=== PATIENT | female | born 1940 | race African-American/Black ===

== ENCOUNTER 2017-06-14 18:44 | Emergency (ER) | payer MEDICARE, OTHER, MEDICAID ==
[2017-06-14 18:53] VITALS: BP 156/101
[2017-06-14] MEDS ORDERED: ACETAMINOPHEN 325 MG TABLET PO ONE (20:48)
[2017-06-14] MEDS ORDERED: MORPHINE SULFATE IR 15 MG TABLET PO ONE (20:48)
[2017-06-14] MEDS ORDERED: IBUPROFEN 400 MG TABLET PO ONE (20:48)
--- NOTE | 2017-06-14 20:52 | ER Document Report ---
ED General - General Chief Complaint: Facial Swelling Stated Complaint: MOUTH SWELLING,TOOTH PAIN Time Seen by Provider: 06/14/17 19:21 Notes: Patient is a 76-year-old female who presents with 2 days of severe dental pain with associated headache. Patient reports that she cracked her one remaining lateral incisor several days ago while eating chicken and since that time is had severe pain. She describes it as a constant, severe, throbbing pain to her jaw that sometimes radiates up into her head. She denies a history of similar symptoms in the past. She states that she went to a dentist but her insurance would not cover the appropriate procedure so she needs to wait until the beginning of the year until she can have a procedure for definitive management. She denies any fever, altered mental status, neck pain, weakness, numbness, or significant facial swelling. No difficulty breathing or swallowing. TRAVEL OUTSIDE OF THE [place] IN LAST 30 DAYS: No - Related Data Allergies/Adverse Reactions: No Known Allergies Allergy (Verified 06/14/17 18:46) Past Medical History - General Information source: Patient - Social History Smoking Status: Never Smoker Frequency of alcohol use: None Drug Abuse: None Lives with: Family Family History: DM - Past Medical History Cardiac Medical History: Reports: Hx Hypertension - ON MEDS Denies: Hx Heart Attack Pulmonary Medical History: Denies: Hx Asthma Neurological Medical History: Denies: Hx Cerebrovascular Accident, Hx Seizures GI Medical History: Denies: Hx Hepatitis, Hx Hiatal Hernia, Hx Ulcer Musculoskeltal Medical History: Reports Hx Arthritis - in back Infectious Medical History: Denies: Hx Hepatitis Past Surgical History: Reports: Hx Orthopedic Surgery - rt foot bunion resection. Denies: Hx Hysterectomy, Hx Mastectomy, Hx Open Heart Surgery, Hx Pacemaker - Immunizations Hx Diphtheria, Pertussis, Tetanus Vaccination: Yes - 2008 Review of Systems - Review of Systems Notes: Constitutional: Negative for fever. HENT: Negative for sore throat. Eyes: Negative for visual changes. Cardiovascular: Negative for chest pain. Respiratory: Negative for shortness of breath. Gastrointestinal: Negative for abdominal pain, vomiting or diarrhea. Genitourinary: Negative for dysuria. Musculoskeletal: Negative for back pain. Skin: Negative for rash. Neurological: Positive for headaches 10 point ROS negative except as marked above and in HPI. Physical Exam - Vital signs Vitals: Temp Pulse Resp BP Pulse Ox 99.7 F 103 H 20 156/101 H 99 06/14/17 18:49 06/14/17 18:49 06/14/17 18:49 06/14/17 18:49 06/14/17 18:49 Interpretation: Hypertensive Notes: PHYSICAL EXAMINATION: GENERAL: Well-appearing, well-nourished and in no acute distress. HEAD: Atraumatic, normocephalic. EYES: Pupils equal round and reactive to light, extraocular movements intact, sclera anicteric, conjunctiva are normal. ENT: The one remaining tooth of the upper teeth tooth #12 is fractured down to the level of the gum without any surrounding erythema or evidence of an abscess NECK: Normal range of motion, supple without lymphadenopathy LUNGS: Breath sounds clear to auscultation bilaterally and equal. No wheezes rales or rhonchi. HEART: Regular rate and rhythm without murmurs ABDOMEN: Soft, nontender, normoactive bowel sounds. No guarding, no rebound. No masses appreciated. EXTREMITIES: Normal range of motion, no pitting or edema. No cyanosis. NEUROLOGICAL: Face symmetric. Tongue protrudes midline. Extraocular motions intact. Pupils are 2 mm and equally reactive. Normal speech, normal gait. 5 out of 5 strength in both the distal and proximal upper and lower extremities bilaterally. Sensation is grossly intact throughout. Finger to nose testing normal. Pronator drift normal. PSYCH: Normal mood, normal affect. SKIN: Warm, Dry, normal turgor, no rashes or lesions noted. Course - Re-evaluation Re-evalutation: 06/14/17 20:47 Presentation is most consistent with likely a fractured and subsequently infected tooth. Airway is patent. Vitals within normal limits. Patient is able swallow without any difficulty. There is no significant facial swelling. No evidence of [place] angina, apical abscess, or airway obstruction. Patient will be started on antibiotics. I've instructed to follow-up with dentistry as earliest ability for definitive management. At this time will discharge with return precautions and follow-up recommendations. Verbal discharge instructions given a the bedside and opportunity for questions given. Medication warnings reviewed. Patient is in agreement with this plan and has verbalized understanding of return precautions and the need for primary care follow-up in the next 24-72 hours. - Vital Signs Vital signs: Temp Pulse Resp BP Pulse Ox 99.7 F 103 H 20 156/101 H 99 06/14/17 18:49 06/14/17 18:49 06/14/17 18:49 06/14/17 18:49 06/14/17 18:49 Discharge - Discharge Clinical Impression: Pain, dental Tooth fracture Qualifiers: Encounter type: initial encounter Fracture type: closed Qualified Code(s): S02.5XXA - Fracture of tooth (traumatic), initial encounter for closed fracture Condition: Good Disposition: HOME, SELF-CARE Additional Instructions: You have been seen for dental pain. It is very important that you follow-up with a dentist for definitive care. Please return if you develop fever greater than 101, swelling in your face, vomiting, difficulty breathing or swallowing, or any other symptoms that are concerning to you. For your pain: Take ibuprofen 600 mg and acetaminophen 1000 mg every 6 hours together as needed for pain. If this does not control your pain you may take 15 mg of oral morphine every 4 hours as needed. Please be very careful about using the oral morphine and only use this for severe pain. Prescriptions: Morphine Sulfate [Morphine Ir 15 mg Tablet] 15 mg PO Q4HP PRN #12 tablet PRN Reason: Penicillin V Potassium [Penicillin Vk 500 mg Tablet] 500 mg PO BID #20 tablet
== END 2017-06-14 21:30 | disposition home or self-care (01) ==
LOC: ER 18:44
DX: S02.5XXA Fracture of tooth (traumatic), initial encounter for closed fracture (principal); X58.XXXA Exposure to other specified factors, initial encounter; K08.89 Other specified disorders of teeth and supporting structures; I10 Essential (primary) hypertension; R51 Headache
CPT/HCPCS: 99283; A9270 ×3; J3490

== ENCOUNTER 2019-08-17 14:04 | Emergency (ER) | payer MEDICARE, MEDICAID ==
[2019-08-17] MEDS ORDERED: IPRATROPIUM/ALBUTEROL 0.5-2.5 MG/3 ML AMPUL NEB ONE (14:27)
[2019-08-17] MEDS ORDERED: METHYLPREDNISOLONE INJ 125 MG/2 ML SDV IV ONE (14:27)
--- NOTE | 2019-08-17 14:29 | ER Document Report ---
ED Medical Screen (RME) - General Chief Complaint: Breathing Difficulty Stated Complaint: COUGH/CHEST PAIN Time Seen by Provider: 08/17/19 14:24 Mode of Arrival: Wheelchair Information source: Patient Notes: 79-year-old female patient presents emergency department chief complaint of cough over the last 3 days. Patient sounds very congested, she has diffuse expiratory wheezes noted. She does report a history of asthma many years ago, states she does not take any medication for this now. Denies any fevers. I have greeted and performed a rapid initial assessment of this patient. A comp rehensive ED assessment and evaluation of the patient, analysis of test results and completion of the medical decision making process will be conducted by additional ED providers. I have specifically instructed the patient or family members with the patient to immediately return to any nursing staff should anything change in the patient's condition or with their chief complaint. TRAVEL OUTSIDE OF THE [place] IN LAST 30 DAYS: No - Related Data Allergies/Adverse Reactions: No Known Allergies Allergy (Verified 08/17/19 14:23) Past Medical History - Social History Chew tobacco use (# tins/day): No Frequency of alcohol use: None Drug Abuse: None - Past Medical History Cardiac Medical History: Reports: Hx Hypertension - ON MEDS Denies: Hx Heart Attack Pulmonary Medical History: Denies: Hx Asthma Neurological Medical History: Denies: Hx Cerebrovascular Accident, Hx Seizures Renal/ Medical History: Denies: Hx Peritoneal Dialysis GI Medical History: Denies: Hx Hepatitis, Hx Hiatal Hernia, Hx Ulcer Musculoskeltal Medical History: Reports Hx Arthritis - in back Infectious Medical History: Denies: Hx Hepatitis Past Surgical History: Reports: Hx Orthopedic Surgery - rt foot bunion resecti on. Denies: Hx Hysterectomy, Hx Mastectomy, Hx Open Heart Surgery, Hx Pacemaker - Immunizations Hx Diphtheria, Pertussis, Tetanus Vaccination: Yes - 2008 Physical Exam - Vital signs Vitals: Temp Pulse Resp BP Pulse Ox 98.8 F 94 22 H 148/92 H 99 08/17/19 14:20 08/17/19 14:20 08/17/19 14:20 08/17/19 14:20 08/17/19 14:20 Course - Vital Signs Vital signs: Temp Pulse Resp BP Pulse Ox 98.8 F 94 22 H 148/92 H 99 08/17/19 14:20 08/17/19 14:20 08/17/19 14:20 08/17/19 14:20 08/17/19 14:20
--- NOTE | 2019-08-17 15:12 | RADIOLOGY REPORT (SQ) ---
EXAM DESCRIPTION: CHEST 2 VIEWS COMPLETED DATE/TIME: 08/17/2019 2:51 pm REASON FOR STUDY: cough COMPARISON: None. EXAM PARAMETERS: NUMBER OF VIEWS: two views TECHNIQUE: Digital Frontal and Lateral radiographic views of the chest acquired. RADIATION DOSE: NA LIMITATIONS: none FINDINGS: LUNGS AND PLEURA: No focal opacities. Perihilar atelectasis. No effusions. MEDIASTINUM AND HILAR STRUCTURES: No masses or contour abnormalities. HEART AND VASCULAR STRUCTURES: Heart normal size. No evidence for failure. BONES: No acute findings. HARDWARE: None in the chest. OTHER: No other significant finding. IMPRESSION: Perihilar atelectasis. TECHNICAL DOCUMENTATION: JOB ID: [id number] 2011 [employer]- All Rights Reserved Reading location - IP/workstation name: [email or web address]
[2019-08-17 15:27] LABS: ABSOLUTE BASOPHILS # (AUTO) 0.1 10^3/uL (0.0-0.2); ABSOLUTE EOSINOPHILS # (AUTO) 0.6 10^3/uL (0.0-0.6); ABSOLUTE LYMPHOCYTES (AUTO) 1.7 10^3/uL (0.5-4.7); ABSOLUTE MONOCYTES (AUTO) 0.8 10^3/uL (0.1-1.4); ABSOLUTE NEUT (AUTO) 2.5 10^3/uL (1.7-8.2); EOSINOPHILS % (AUTO) 10.4 % (0-6); HEMOGLOBIN 13.9 g/dL (12.0-15.5); LYMPHOCYTES % (AUTO) 30.2 % (13-45); MEAN CORPUSCULAR HEMOGLOBIN 30.9 pg (27.0-33.4); MEAN CORPUSCULAR HGB CONC 34.8 g/dL (32.0-36.0); MEAN CORPUSCULAR VOLUME 89 fl (80-97); MONOCYTES % (AUTO) 14.5 % (3-13); PLATELET COUNT 174 10^3/uL (150-450); RED CELL DISTRIBUTION WIDTH 14.5 % (11.5-14.0); SEGMENTED NEUTROPHILS % (AUTO) 43.9 % (42-78); TOTAL CELLS COUNTED % (AUTO) 100 %; WHITE BLOOD COUNT 5.7 10^3/uL (4.0-10.5)
[2019-08-17 16:31] LABS: ALKALINE PHOSPHATASE 109 U/L (38-126); ANION GAP 9 (5-19); ASPARTATE AMINO TRANSFERASE 48 U/L (14-36); BILIRUBIN,DIRECT 0.3 mg/dL (0.0-0.4); BILIRUBIN,TOTAL 0.7 mg/dL (0.2-1.3); BLOOD UREA NITROGEN 16 mg/dL (7-20); CALCIUM 9.8 mg/dL (8.4-10.2); CARBON DIOXIDE 21 mmol/L (22-30); CHLORIDE 110 mmol/L (98-107); GLUCOSE 84 mg/dL (75-110); POTASSIUM 4.8 mmol/L (3.6-5.0); TOTAL PROTEIN 8.5 g/dL (6.3-8.2)
[2019-08-17 16:40] LABS: NT PRO BNP 73 pg/mL (<450)
[2019-08-17 16:45] LABS: TROPONIN I < 0.012 ng/mL
[2019-08-17] MEDS ORDERED: GUAIFENESIN/CODEINE PHOS 100-10 MG/ 5 ML UDC PO ONE (17:09)
--- NOTE | 2019-08-17 17:09 | ER Document Report ---
ED Respiratory Problem - General Chief Complaint: Breathing Difficulty Stated Complaint: COUGH/CHEST PAIN Time Seen by Provider: 08/17/19 14:24 Mode of Arrival: Wheelchair Notes: 79-year-old woman presents to the emergency department with a 1 day history of increased cough and upper respiratory tract symptoms. She denies history of fever or chest pain. She is received a nebulizer treatment and chest x-ray was performed. Chest x-ray is negative and the patient O2 sat is 100%. She states that she is needing something to help with the coughing. TRAVEL OUTSIDE OF THE [place] IN LAST 30 DAYS: No - Related Data Allergies/Adverse Reactions: No Known Allergies Allergy (Verified 08/17/19 14:23) Past Medical History - General Information source: Patient - Social History Smoking Status: Never Smoker Chew tobacco use (# tins/day): No Frequency of alcohol use: None Drug Abuse: None Family History: DM Patient has suicidal ideation: No Patient has homicidal ideation: No - Past Medical History Cardiac Medical History: Reports: Hx Hypertension - ON MEDS Denies: Hx Heart Attack Pulmonary Medical History: Denies: Hx Asthma Neurological Medical History: Denies: Hx Cerebrovascular Accident, Hx Seizures Renal/ Medical History: Denies: Hx Peritoneal Dialysis GI Medical History: Denies: Hx Hepatitis, Hx Hiatal Hernia, Hx Ulcer Musculoskeletal Medical History: Reports Hx Arthritis - in back Infectious Medical History: Denies: Hx Hepatitis Past Surgical History: Reports: Hx Orthopedic Surgery - rt foot bunion resection. Denies: Hx Hysterectomy, Hx Mastectomy, Hx Open Heart Surgery, Hx Pacemaker - Immunizations Hx Diphtheria, Pertussis, Tetanus Vaccination: Yes - 2008 Review of Systems - Review of Systems Notes: Constitutional: Negative for fever. HENT: Negative for sore throat. Eyes: Negative for visual changes. Cardiovascular: Negative for chest pain. Respiratory: + Cough, + shortness of breath. Gastrointestinal: Negative for abdominal pain, vomiting or diarrhea. Genitourinary: Negative for dysuria. Musculoskeletal: Negative for back pain. Skin: Negative for rash. Neurological: Negative for headaches, weakness or numbness. 10 point ROS negative except as marked above and in HPI. Physical Exam - Vital signs Vitals: Temp Pulse Resp BP Pulse Ox 98.8 F 94 22 H 148/92 H 99 08/17/19 14:20 08/17/19 14:20 08/17/19 14:20 08/17/19 14:20 08/17/19 14:20 - Notes Notes: PHYSICAL EXAMINATION: Physical Exam: General: Well-nourished well-developed 79-year-old woman in no acute distress HEENT: NC/AT, pupils equal round and reactive to light, MM moist,nares clear, oropharynx clear, airway patent Neck: supple, no adenopathy, no masses. Good range of motion Lungs: clear, no wheezing, + upper airway rhonchi CVS: Regular rate and rhythm no murmur gallop or rub Abdomen: Soft, active, nontender, no masses, no hepatosplenomegaly Ext: No edema, clubbing or cyanosis. Neuro: Alert and responsive, moving all 4 extremities on command, cranial nerves intact, no focal findings Skin: Intact no open lesions, no rash PSYCH: Normal mood, normal affect. Course - Re-evaluation Re-evalutation: 08/17/19 19:11 Patient with cough and upper respiratory symptoms, chest x-ray is negative for pneumonia, diagnoses of the upper respiratory tract infection with likely possible bronchitis. Patient is given prescriptions for antibiotics and steroids. Said to follow-up with her primary care doctor and to return to the emergency department if needed. Patient seems agreeable with that plan and is being discharged. - Vital Signs Vital signs: Temp Pulse Resp BP Pulse Ox 98.8 F 94 21 H 167/103 H 99 08/17/19 14:20 08/17/19 14:20 08/17/19 18:01 08/17/19 18:01 08/17/19 18:01 - Laboratory Result Diagrams: 08/17/19 15:00 08/17/19 16:00 Laboratory results interpreted by me: 08/17/19 08/17/19 15:00 16:00 RDW 14.5 H [place] % (Auto) 14.5 H Eos % (Auto) 10.4 H Chloride 110 H Carbon Dioxide 21 L Est GFR ( Amer) 56 L Est GFR (MDRD) Non-Af 47 L AST 48 H ALT 36 H Total Protein 8.5 H - Diagnostic Test Radiology reviewed: Image reviewed, Reports reviewed - Chest x-ray: Perihilar atelectasis, no infiltrate seen. - EKG Interpretation by Me EKG shows normal: Sinus rhythm - Rate of 97, nonspecific T wave abnormalities, interpretation: Abnormal EKG Discharge - Discharge Clinical Impression: Cough, Bronchospasm Acute bronchitis Qualifiers: Bronchitis organism: unspecified organism Qualified Code(s): J20.9 - Acute bronchitis, unspecified Condition: Good Disposition: HOME, SELF-CARE Instructions: Bronchitis ([facility]), Bronchospasm ([facility]) Additional Instructions: You were diagnosed with acute bronchitis and bronchospasms in the emergency department, please use medications as prescribed, albuterol inhaler, Zithromax, prednisone, Tessalon Perles. You might use [id number] cough medication Robitussin-DM which was given in the emergency department as well as a prescription cough medicine and Tessalon Perles. Please follow-up with your doctor on Monday, you may return to the emergency department if your symptoms are worsening. Prescriptions: Benzonatate [Tessalon Perles 100 mg Capsule] 100 mg PO Q8HP PRN #40 capsule PRN Reason: Prednisone [Deltasone 20 mg Tablet] 1 tab PO BID 5 Days #10 tablet Albuterol Sulfate [Proair HFA Inhalation Aerosol 8.5 gm MDI] 2 puff IH Q4H PRN #1 mdi PRN Reason: Azithromycin [Zithromax 250 mg Tablet] 250 mg PO ASDIR PRN #6 tablet PRN Reason:
[2019-08-17 19:27] VITALS: BP 143/93
--- NOTE | 2019-08-17 21:57 | EKG REPORT ---
SEVERITY:- BORDERLINE ECG - SINUS RHYTHM BORDERLINE T ABNORMALITIES, INFERIOR LEADS : Confirmed by: Caity Hendrix 17-Aug-2019 21:57:13
== END 2019-08-17 19:38 | disposition home or self-care (01) ==
LOC: ER 14:04
DX: J20.9 Acute bronchitis, unspecified (principal); J98.11 Atelectasis; R05 Cough; R06.02 Shortness of breath; I10 Essential (primary) hypertension
CPT/HCPCS: 93005; 99284; 36415; 85025; 80053; 84484; 83880; 71046; 93010; J2930; A9270 ×2; J7620

== ENCOUNTER 2020-01-02 19:00 | Emergency (ER) | payer MEDICARE, MEDICAID ==
--- NOTE | 2020-01-02 19:28 | ER Document Report ---
ED Medical Screen (RME) - General Chief Complaint: Fall Stated Complaint: FALL/HEAD INJURY Time Seen by Provider: 01/02/20 19:20 Notes: HPI: 79-year-old female presenting to the emergency department with multiple complaints. Patient tripped over a concrete barrier in a parking lot and fell forward landing on her face. Patient complains of pain to the right cheek, complains of mild dull headache. Complains of pain to the right knee. States she was able to be helped up and weight-bear but has some mild discomfort into the hips and pelvis. Also reporting some low back pain which has been an ongoing problem. PHYSICAL EXAMINATION: Limited exam in triage process. Patient with slight soft tissue swelling with pain over the right zygoma. Patient with mild tenderness on compression of the pelvis. Mild tenderness overlying the right knee on palpation. Difficult exam as patient is fully dressed and tight fitting jeans. Mild tenderness over the lumbar spine and paraspinous musculature bilaterally. I have greeted and performed a rapid initial assessment of this patient. A comprehensive ED assessment and evaluation of the patient, analysis of test results and completion of medical decision making process will be conducted by an additional ED providers. TRAVEL OUTSIDE OF THE [place] IN LAST 30 DAYS: No - Related Data Allergies/Adverse Reactions: No Known Allergies Allergy (Verified 08/17/19 14:23) Past Medical History - Past Medical History Cardiac Medical History: Reports: Hx Hypertension - ON MEDS Denies: Hx Heart Attack Pulmonary Medical History: Denies: Hx Asthma Neurological Medical History: Denies: Hx Cerebrovascular Accident, Hx Seizures Renal/ Medical History: Denies: Hx Peritoneal Dialysis GI Medical History: Denies: Hx Hepatitis, Hx Hiatal Hernia, Hx Ulcer Musculoskeltal Medical History: Reports Hx Arthritis - in back Infectious Medical History: Denies: Hx Hepatitis Past Surgical History: Reports: Hx Orthopedic Surgery - rt foot bunion resection. Denies: Hx Hysterectomy, Hx Mastectomy, Hx Open Heart Surgery, Hx Pacemaker - Immunizations Hx Diphtheria, Pertussis, Tetanus Vaccination: Yes - 2008 Physical Exam - Vital signs Vitals: Temp Pulse Resp BP Pulse Ox 98.6 F 73 17 146/117 H 97 01/02/20 19:08 01/02/20 19:08 01/02/20 19:08 01/02/20 19:08 01/02/20 19:08 Course - Vital Signs Vital signs: Temp Pulse Resp BP Pulse Ox 98.6 F 73 17 146/117 H 97 01/02/20 19:08 01/02/20 19:08 01/02/20 19:08 01/02/20 19:08 01/02/20 19:08
--- NOTE | 2020-01-02 19:55 | RADIOLOGY REPORT (SQ) ---
EXAM DESCRIPTION: CT CERVICAL SPINE WITHOUT IMAGES COMPLETED DATE/TIME: 01/02/2020 7:44 pm REASON FOR STUDY: fall COMPARISON: None. TECHNIQUE: Axial images acquired through the cervical spine without intravenous contrast. Images re viewed with lung, soft tissue and bone windows. Reconstructed coronal and sagittal MPR images review ed. Images stored on PACS. All CT scanners at this facility use dose modulation, iterative reconstruction, and/or weight based d osing when appropriate to reduce radiation dose to as low as reasonably achievable (ALARA). [facility]: Dose Right [facility]: CareDose [facility]: Dose Right [facility]: Teradose 4D [facility]: [employer] RADIATION DOSE: CT Rad equipment meets quality standard of care and radiation dose reduction techniq ues were employed. CTDIvol: 24.0 - 53.2 mGy. DLP: 1902 mGy-cm. mGy. LIMITATIONS: None. FINDINGS: ALIGNMENT: Anatomic. MINERALIZATION: Normal. VERTEBRAL BODIES: No fractures or dislocation. DISCS: The disc spaces narrowed at C5-6 with chief FACETS, LATERAL MASSES, POSTERIOR ELEMENTS: No fractures. No dislocation. No acute findings. HARDWARE: None in the spine. VISUALIZED RIBS: No fractures. LUNG APICES AND SOFT TISSUES: No significant or acute findings. OTHER: No other significant finding. IMPRESSION: Degenerative disc disease and spondylosis. TECHNICAL DOCUMENTATION: JOB ID: [id number] Quality ID # 436: Final reports with documentation of one or more dose reduction techniques (e.g., Au tomated exposure control, adjustment of the mA and/or kV according to patient size, use of iterative reconstruction technique) 2010 [employer]- All Rights Reserved Reading location - IP/workstation name: [email or web address]
--- NOTE | 2020-01-02 19:57 | RADIOLOGY REPORT (SQ) ---
EXAM DESCRIPTION: CT HEAD WITHOUT IMAGES COMPLETED DATE/TIME: 01/02/2020 7:44 pm REASON FOR STUDY: fall COMPARISON: CT facial bones, CT cervical spine same date TECHNIQUE: Axial images acquired through the brain without intravenous contrast. Images reviewed wi th bone, brain and subdural windows. Additional sagittal and coronal reconstructions were generated. Images stored on PACS. All CT scanners at this facility use dose modulation, iterative reconstruction, and/or weight based d osing when appropriate to reduce radiation dose to as low as reasonably achievable (ALARA). [facility]: Dose Right [facility]: CareDose [facility]: Dose Right [facility]: Teradose 4D [facility]: [employer] RADIATION DOSE: 53 mGy LIMITATIONS: None. FINDINGS: VENTRICLES: Mild prominence of the ventricles out of proportion to sulci and sylvian fissu res. CEREBRUM: No CT evidence of acute large territory ischemic change, acute intracranial hemorrhage, mas s effect, or midline shift. Multiple old lacunar infarcts in the bilateral basal ganglia. Mild bifro ntal and biparietal chronic small vessel ischemic change CEREBELLUM: Old cerebellar lacunar infarct axial image 7. Calcifications in the central yoly could b e related to old infarct or cavernoma/venous angioma EXTRAAXIAL SPACES: No fluid collections. No masses. ORBITS AND GLOBE: Metallic foreign body anterior left globe axial image 7. No MRI. CALVARIUM: No fracture. PARANASAL SINUSES: No fluid or mucosal thickening. SOFT TISSUES: No mass or hematoma. OTHER: No other significant finding. IMPRESSION: No acute findings Old right cerebellar, bilateral basal ganglia infarcts Calcifications in the mid yoly likely due to chronic low-flow vascular malformation or cavernoma Metallic foreign body in the anterior left globe, no MRI EVIDENCE OF ACUTE STROKE: NO. COMMENT: Quality ID # 436: Final reports with documentation of one or more dose reduction techniques (e.g., Automated exposure control, adjustment of the mA and/or kV according to patient size, use of iterative reconstruction technique) TECHNICAL DOCUMENTATION: JOB ID: [id number] 2010 [employer]- All Rights Reserved Reading location - IP/workstation name: [email or web address]
--- NOTE | 2020-01-02 20:00 | RADIOLOGY REPORT (SQ) ---
EXAM DESCRIPTION: CT FACIAL AREA WITHOUT IMAGES COMPLETED DATE/TIME: 01/02/2020 7:44 pm REASON FOR STUDY: fall right facial inj COMPARISON: CT brain same date TECHNIQUE: Noncontrasted images through the facial bones and orbits windowed for bone and soft tissu e. Additional coronal and sagittal reconstructed images reviewed. All images stored on PACS. All CT scanners at this facility use dose modulation, iterative reconstruction, and/or weight based d osing when appropriate to reduce radiation dose to as low as reasonably achievable (ALARA). [facility]: Dose Right [facility]: CareDose [facility]: Dose Right [facility]: Teradose 4D [facility]: [employer] RADIATION DOSE: 30 mGy LIMITATIONS: None. FINDINGS: FACIAL BONES: No fracture or bone lesion. ORBITS: No acute soft tissue globe injury or orbital fracture. Post cataract surgery bilaterally. M etallic foreign body anterior left globe axial image 50 PARANASAL SINUSES: Clear. No significant mucosal thickening, mass or fluid. No nasal polyps. Maxill jacquie sinus outlets are patent. SOFT TISSUES: No mass or edema. INFERIOR BRAIN: No acute intracranial hemorrhage, mass effect or midline shift. Bifrontal white raissa er disease with lacunar infarcts in the bilateral basal ganglia. Calcification mid yoly likely due t o cavernoma or venous angioma OTHER: No other significant finding. IMPRESSION: NO ACUTE FINDINGS. TECHNICAL DOCUMENTATION: JOB ID: [id number] Quality ID # [id number]: Final reports with documentation of one or more dose reduction techniques (e.g., Au tomated exposure control, adjustment of the mA and/or kV according to patient size, use of iterative reconstruction technique) 2010 [employer]- All Rights Reserved Reading location - IP/workstation name: [email or web address]
--- NOTE | 2020-01-02 20:17 | RADIOLOGY REPORT (SQ) ---
EXAM DESCRIPTION: X-ray, four views of the right knee CLINICAL HISTORY: 79 years Female, fall COMPARISON: None. FINDINGS: Bone mineralization is diminished. Alignment is anatomic. No fracture. No effusion. Calcification is present posterior to the distal femur and may be vascular. IMPRESSION: No acute process
--- NOTE | 2020-01-02 20:19 | RADIOLOGY REPORT (SQ) ---
EXAM DESCRIPTION: XR PELVIS 1-2 VIEWS, XR LUMBAR SPINE ANTEROPOSTERIOR, LATERAL, AND OBLIQUES COMPLETED DATE/TME: 01/02/2020 19:24 (accession [id number]), 01/02/2020 19:26 (accession [id number]) CLINICAL HISTORY: 79 years, Female, fall COMPARISON: None. TECHNIQUE: Single AP view of the pelvis and 5 views of the lumbar spine were obtained. LIMITATIONS: None. FINDINGS: AP pelvis one view: No bone or joint abnormality. There are incidental calcified phleboliths within the pelvis. Lumbar spine 5 views: AP, lateral, spot view of the lumbosacral junction, and bilateral oblique views were obtained. There is no fracture or subluxation. There is no definite pars defect. There is disc space narrowing at L5-S1. There is multilevel marginal osteophyte formation. There is also mild mid to lower lumbar facet arthrosis. IMPRESSION: 1. No significant finding about the pelvis. 2. Multilevel degenerative changes about the spine, greater at the L5-S1 level. copyright 2010 [employer]- All Rights Reserved
--- NOTE | 2020-01-02 20:19 | RADIOLOGY REPORT (SQ) ---
EXAM DESCRIPTION: XR PELVIS 1-2 VIEWS, XR LUMBAR SPINE ANTEROPOSTERIOR, LATERAL, AND OBLIQUES COMPLETED DATE/TME: 01/02/2020 19:24 (accession [id number]), 01/02/2020 19:26 (accession [id number]) CLINICAL HISTORY: 79 years, Female, fall COMPARISON: None. TECHNIQUE: Single AP view of the pelvis and 5 views of the lumbar spine were obtained. LIMITATIONS: None. FINDINGS: AP pelvis one view: No bone or joint abnormality. There are incidental calcified phleboliths within the pelvis. Lumbar spine 5 views: AP, lateral, spot view of the lumbosacral junction, and bilateral oblique views were obtained. There is no fracture or subluxation. There is no definite pars defect. There is disc space narrowing at L5-S1. There is multilevel marginal osteophyte formation. There is also mild mid to lower lumbar facet arthrosis. IMPRESSION: 1. No significant finding about the pelvis. 2. Multilevel degenerative changes about the spine, greater at the L5-S1 level. copyright 2010 [employer]- All Rights Reserved
[2020-01-03 00:02] VITALS: BP 142/72
== END 2020-01-03 00:35 | disposition left against medical advice (07) ==
LOC: ER 19:00
DX: R51 Headache (principal); M25.561 Pain in right knee; M54.5 Low back pain; R22.0 Localized swelling, mass and lump, head; W01.0XXA Fall on same level from slipping, tripping and stumbling without subsequent striking against object, initial encounter; Y93.89 Activity, other specified; Y92.481 Parking lot as the place of occurrence of the external cause; M50.30 Other cervical disc degeneration, unspecified cervical region; M47.812 Spondylosis without myelopathy or radiculopathy, cervical region; M47.817 Spondylosis without myelopathy or radiculopathy, lumbosacral region; I10 Essential (primary) hypertension; Z53.20 Procedure and treatment not carried out because of patient's decision for unspecified reasons
CPT/HCPCS: 70450; 70486; 72110; 72125; 72170; 99281